=== PATIENT | male | born 1965 | race Hispanic/Latino ===

== ENCOUNTER 2022-01-02 09:20 | Day surgery (SDC) | payer OTHER ==
[~2022-01-02] VITALS: Ht 180.3 cm; Wt 91.6 kg
[2022-01-02] VITALS (9 sets, daily range): BP systolic 108–123; BP diastolic 67–83
[2022-01-02] MEDS ORDERED: 0.9%NACL 1000ML 1,000 ML IV ONE (10:30)
[2022-01-02] MEDS ORDERED: PROPOFOL 10 MG/ML 20ML VIAL IV ONE ×2 (11:52)
[2022-01-02] MEDS ORDERED: LIDOCAINE HCL-MPF 2% 10ML AMP IJ ONE (12:12)
== END 2022-01-02 13:40 | disposition home or self-care (01) ==
LOC: ENDO 09:20 → DAH 09:20 → EDSEX 12:20 → ENDO 13:40
PROVIDERS: ATTEND Internal Medicine Gastroenterology
DX: Z01.818 Encounter for other preprocedural examination (principal); K57.30 Diverticulosis of large intestine without perforation or abscess without bleeding; K63.5 Polyp of colon; Z85.038 Personal history of other malignant neoplasm of large intestine; Z79.899 Other long term (current) drug therapy; Z98.890 Other specified postprocedural states
CPT/HCPCS: 87635; 44389; C9803; J7030 ×2; J2704 ×2; J3490; A4620; A4215; A4221; A4663; A4606; A4223